=== PATIENT | male | born 1945 | race Caucasian/White ===

== ENCOUNTER 2021-11-04 11:04 | Outpatient (CLI) | payer MEDICARE | END 2021-11-04 11:05 | disposition home or self-care (01) | LOC: NAV RAD 11:04 | PROVIDERS: ATTEND Family Medicine | DX: R05.3 Chronic cough (principal); R09.81 Nasal congestion; U09.9 Post COVID-19 condition, unspecified | CPT/HCPCS: 71046 ==

== ENCOUNTER 2023-02-07 14:45 | Emergency (ER) | payer OTHER ==
[2023-02-07] MEDS ORDERED: Lidocaine 1% (PF) 30 ML VIAL ONE (15:50)
[2023-02-07] MEDS ORDERED: Bacitracin 1 PK ONE (17:19)
== END 2023-02-07 17:29 | disposition home or self-care (01) ==
LOC: NAV ERS 14:45
DX: S61.011A Laceration without foreign body of right thumb without damage to nail, initial encounter (principal); W01.0XXA Fall on same level from slipping, tripping and stumbling without subsequent striking against object, initial encounter
CPT/HCPCS: 12002; J2001

== ENCOUNTER 2023-04-15 10:34 | Outpatient (CLI) | payer OTHER | END 2023-04-15 10:35 | disposition home or self-care (01) | LOC: NAV RAD 10:34 | PROVIDERS: ATTEND Family Medicine | DX: M70.20 Olecranon bursitis, unspecified elbow (principal) ==